=== PATIENT | male | born 1985 | race Caucasian/White ===

== ENCOUNTER 2021-01-28 12:29 | Emergency (ER) | payer MEDICAID ==
[~2021-01-28] VITALS: Ht 180.3 cm; Wt 109.1 kg
[2021-01-28 12:38] VITALS: BP 146/104
[2021-01-28] MEDS ORDERED: SILVER NITRATE APPLICATOR 1 EA STICK TP ONE (13:45)
== END 2021-01-28 14:36 | disposition home or self-care (01) ==
LOC: EMS 12:30
DX: I83.91 Asymptomatic varicose veins of right lower extremity (principal)
CPT/HCPCS: 99282; Z7502; Z7610